=== PATIENT | male | born 1985 | race Caucasian/White ===

== ENCOUNTER → 2019-02-16 11:08 | Outpatient (CLI) | payer MEDICAID, SELFPAY ==
--- NOTE | 2019-02-16 11:17 | EKG12_ITS ---
Test Reason : HALFWAY MED Blood Pressure : / mmHG Vent. Rate : 058 BPM Atrial Rate : 058 BPM P-R Int : 144 ms QRS Dur : 092 ms QT Int : 406 ms P-R-T Axes : 057 047 050 degrees QTc Int : 398 ms Sinus bradycardia Otherwise normal ECG Confirmed by KEN SUAREZ, AVI ([id number]), school photograph editor VINITA AREVALO ([id number]) on 02/17/2019 1:16:05 PM Referred By: MATTIE FLAHERTY Confirmed By:STANFORD ROGERS MD
== END ==
PROVIDERS: Family Provider Family Medicine; PCP Family Medicine
DX: Z79.899 Other long term (current) drug therapy (principal)
CPT/HCPCS: 93005

== ENCOUNTER 2019-03-22 14:02 | Emergency (ER) | payer MEDICAID, SELFPAY ==
[2019-03-22 14:05] VITALS: BP 146/93; PULSE 94; RESP 17; TEMP 36.5; O2SAT 100; BMI 25.8
--- NOTE | 2019-03-22 14:29 | EKG12_ITS ---
Test Reason : SUB Blood Pressure : / mmHG Vent. Rate : 073 BPM Atrial Rate : 073 BPM P-R Int : 146 ms QRS Dur : 088 ms QT Int : 386 ms P-R-T Axes : 043 039 038 degrees QTc Int : 425 ms Normal sinus rhythm Normal ECG Confirmed by JAMES FLOWERS ([id number]), slot editor VINITA AREVALO ([id number]) on 03/24/2019 1:11:54 PM Referred By: CHACORTA Confirmed By:JAMES FLOWERS
[2019-03-22] MEDS: Ondansetron 4 MG/2 ML Vial IV (14:46)
[2019-03-22] MEDS: 0.9% Normal Saline 1,000 ML 1000 ML IV (14:46)
[2019-03-22] MEDS: Mag Hydrox/Al Hydrox/Simeth 30 ML UDC PO (14:46)
[2019-03-22 14:47] LABS: Absolute Lymphocyte Count 1.42 X10^3/uL (0.83-4.51); Absolute Neutrophil Count 5.8 X10^3/uL (2.0-7.7); Basophil# 0.04 X10^3/uL; Basophil% 0.5 % (0-1); Eosinophil# 0.02 X10^3/uL; Eosinophils% 0.2 % (0-5); Hematocrit 47.8 % (40-54); Lymphocyte # 1.42 X10^3/ul (4.0); Lymphocyte % 17.3 % (19-41); Mean Corp Hgb Conc 33.5 g/dL (32-36); Mean Corpuscular Hgb 28.9 pg (27.0-32.0); Mean Corpuscular Volume 86.3 fL (80-94); Mean Platelet Vol. 9.4 fl (6.2-12.0); Monocyte# 0.94 X10^3/uL; Monocyte% 11.4 % (0-10); NRBC Flagged by Analyzer 0 % (0-5); Neutrophil # 5.77 X10^3/uL (2.7-7.7); Neutrophil % 70.2 % (47-70); Platelet Count 341 K/mm3 (150-450); RBC Distribution Width CV 12.2 % (11.6-14.6); RBC Distribution Width SD 38.2 fl (35.1-43.9); Red Blood Count 5.54 M/mm3 (4.6-6.2); White Blood Count 8.2 K/mm3 (4.4-11.0)
[2019-03-22 15:10] LABS: ALB/GLOB Ratio 1.1 RATIO (0.9-2.4); AST(SGOT) 30 U/L (15-37); Alanine Aminotransfer ALT/SGPT 52 U/L (16-61); Albumin, Serum 4.3 g/dL (3.2-5.0); Alkaline Phosphatase 82 U/L (45-117); Anion Gap 8 (5-15); BUN 10 mg/dL (7-18); Calcium,Total 9.9 mg/dL (8.5-10.1); Chloride 104 mmol/L (98-107); Creatinine, Serum 1.25 mg/dL (0.70-1.30); EST Glomerular Filtration Rate 70 mL/min (>60); Est Glom Filt Rate - Afr Amer 85 mL/min (>60); Estimated Creatinine Clearance 86.79 ml/min; Glucose 107 mg/dL (74-106); Lipase 83 U/L (73-393); Potassium 3.7 mmol/L (3.5-5.1); Protein, Total 8.3 g/dL (6.4-8.2); Sodium Level 141 mmol/L (136-145)
--- NOTE | 2019-03-22 15:34 | ED.DCSUM_ITS ---
- ER Visit Summary Date of Service: 03/22/19 Chief Complaint: Shaky and hiccups History of Present Illness: The patient is a 33 M who is a patient of Dr. Mclean. He reports that he is seeing a counselor for alcohol abuse. States that he had not had a drink for a week. However, he drank the past 4 days and drinks 12 pack each time. He reports that typically he drinks 1-3 times a week. Patient reports that after not drinking yesterday he noticed that he was shaky and has the hiccups. He is lightheaded and this increases when he stands. He has not passed out. Reports that he has a chest pain is 5-10 in severity. Is increased with drinking or nicotine. Nothing makes this better. He has been nauseated and vomited 8 times. No blood in his emesis. No diarrhea. No melena hematochezia. Physical Examination: Vitals: Stable. Afebrile. General: Well-nourished and well-developed. Head: Normocephalic atraumatic. Neck: Supple, no lymphadenopathy. No JVD. Nontender. Cardiovascular: Regular rate and rhythm. No murmurs. Respiratory: No respiratory distress. Clear to auscultation bilaterally. Abdominal: Soft, mild epigastric tenderness to palpation, nondistended, normal bowel sounds. No guarding, rebound, or peritoneal signs. Back: Nontender. Extremities: Nontender, no edema. Skin: Normal color, no rash. Neurologic: Alert and oriented ?3. Cranial nerves II through XII are intact. Normal strength and sensation. Psych: Normal affect. Test Results: EKG is sinus at [address] changes. Is unchanged from prior. CBC shows lymphocytes 17 and monocytes of 11. Chem-7 shows a glucose 107. LFTs are normal. Lipase is normal. Emergency Department Course and Treatment: Patient had an IV placed. He was given liter of normal saline. He was given Zofran IV and a GI cocktail p.o. He does report some relief from this. However, he still has the hiccups. We talked about the possibility of Thorazine. He does not have a ride home and does not want this. Treatment Plan: I suspect patient has gastritis from his alcohol abuse. He will be discharged with [facility] and instructed to abstain from alcohol use. Instructed to follow-up with his primary care physician in 1 week if not improving. Return to the emergency department for any worsening symptoms. Disposition: To home in improved and stable condition. Impression: 1. Alcohol abuse. 2. Gastritis. 3. Alcohol abuse. This note was generated with [employer] [place] software. It may contain incorrect words, spelling, and punctuation that were not noted in review of the chart prior to signing ED Disposition - Plan for ED Patient: Instructions: GASTRITIS (Adult), Alcohol Abuse Prescriptions: Omeprazole [Prilosec] 20 mg PO DAILY #30 cap Transmission Status: Received by [facility] Ondansetron [Zofran Odt] 4 mg PO Q8H PRN PRN #10 tab PRN Reason: Nausea Transmission Status: Received by [facility] Referrals: José Miguel Mclean DO [Primary Care Provider] - 1 Week if not improving
[2019-03-22 16:00] VITALS: BP 129/88; PULSE 90; RESP 16; O2SAT 98
== END 2019-03-22 16:05 | disposition home or self-care (01) ==
LOC: ED 14:42
PROVIDERS: Emergency Provider Emergency Medicine; PCP Family Medicine
DX: F10.10 Alcohol abuse, uncomplicated (principal); Y90.9 Presence of alcohol in blood, level not specified; K29.70 Gastritis, unspecified, without bleeding; R06.6 Hiccough; Z72.0 Tobacco use
CPT/HCPCS: 80053; 83690; 85025; 93005; 96361; 96374; 99284; J7030; A4216; J2405

== ENCOUNTER 2019-08-08 22:46 | Emergency (ER) | payer MEDICAID, SELFPAY ==
[2019-08-08 22:47] VITALS: BP 163/101; PULSE 110; RESP 20; TEMP 36.3; O2SAT 100; BMI 24.9
--- NOTE | 2019-08-08 23:25 | RAD_ITS ---
HISTORY: Chest pain, shortness of breath, palpitations. EXAM: XR Chest 1 View: COMPARISON: None FINDINGS: # of images incl. paperwork: 1 Lungs are clear. Heart is not enlarged. No acute osseous pathology perceived. Pulmonary vascularity is distinct. No effusions. RAD/Chest 1 View (Portable) IMPRESSION: Normal. at 0029 Reported and signed by: Joao Santos MD Electronically Signed: Joao Santos MD at 0:28 EDT Tel , Service support ,
--- NOTE | 2019-08-08 23:27 | ED.DCSUM_ITS ---
History of Present Illness Chief Complaint: Substance Abuse Informant: Patient Onset: Today Context: Gradual Onset Timing: Continuous Narrative: Patient is a 34-year-old male with history of anxiety presenting with chest pain and feeling like he is going to . Patient states he had been on a franco with alcohol for the past 12 days. He states he kept drinking every day because he did want to deal with having a hangover. Patient states he is been drinking beer only. He stopped drinking around noon today. Since then he has been having worsening headaches, anxiety and feeling like he is going to . He states he associated chest pain. It is diffuse throughout his entire chest. Does not radiate. He is denies any difficulty breathing with states he feels short of breath. Patient states he has had similar episodes in the past but never been this severe. He denies any swelling of his legs or history of DVT or PE. He denies any illicit drug use. He states he did use CBD oil couple days ago but does not think this is related. He states he was on anxiety medicine but is been off of it for the past month. He states he otherwise feels safe at home. Patient also states he is getting pain shooting up his neck and into his face. They cause him to feel dizzy. He states he has had these with anxiety attacks before but they have never been this severe. Patient has any other complaints at this time. Past Medical History - Allergies and Home Meds Allergies/Adverse Reactions: Allergies No Known Allergies Allergy (Verified 03/22/19 14:03) Primary Care Physician: José Miguel Mclean DO [Primary Care Provider] - Past Medical History: - - Anxiety Surgical History: noncontributory Lives: Alone Smoking Status: Current some day smoker Alcohol: Heavy Drugs: None Review of Systems General: Denies: Chills, Fever, Sweats Eyes: Denies: Visual changes - bilaterally, Diplopia ENT: Denies: Rhinorrhea, Sore throat Cardiovascular: Reports: Chest pain. Denies: Palpitations Respiratory: Denies: Dyspnea, Cough, Dyspnea on exertion Gastrointestinal: Denies: Abdominal pain, Nausea, Vomiting, Diarrhea, Melena, Hematochezia Genitourinary: Denies: Dysuria, Hematuria, Frequency Musculoskeletal: Denies: Back pain, Extremity Pain Skin: Denies: Rash, Wounds Neurological: Reports: Headache. Denies: Weakness, Numbness Psych: Reports: Anxiety. Denies: Depression, Suicidal thoughts, Suicidal ideations Physical Exam Vital Signs/Narrative: Vital Signs Temp Pulse Resp BP Pulse Ox 08/08/19 22:47 97.3 F L 110 H 20 H 163/101 H 100 Inital Vital Signs reviewed: Yes General: Well nourished, Well developed, No Acute Distress Head: Normocephalic, Atraumatic Eyes: Perrl, EOMI ENT: Moist mucous membranes, No rhinorrhea, TM's clear Neck: Supple, Nontender, No JVD Cardiovascular: Regular rhythm, No murmurs, Tachycardia Respiratory: No distress, CTA bilaterally, Chest nontender Abdomen: Soft, Nontender, Nondistended, Normal bowel sounds. Negative for: Guarding, Rebound tenderness Back: Nontender, Normal Inspection Extremities: Nontender, No edema Skin: Normal color, No rash Neurological: Alert, Oriented x3, Cranial nerves II-XII grossly intact, Normal Strength, Normal Sensation Psychological: Normal affect, - - Very anxious and jittery in the room, displays good insight and answers questions appropriately. Does not appear clinically intoxicated. Diagnostic/Tx/Re-eval Chest X-Ray - ED: 1 View, Read by ED Physician, Read by Radiologist, No Acute Disease Clinical Impression(s) from Imaging Studies Chest X-Ray 08/08/19 23:25 IMPRESSION: Normal. at 0029 Reported and signed by: Joao Santos MD Electronically Signed: Joao Santos MD at 0:28 EDT Tel , Service support , Laboratory Data 08/08/19 08/08/19 08/08/19 22:58 22:58 22:58 WBC 9.9 RBC 5.38 Hgb 15.5 Hct 46.7 MCV 86.8 MCH 28.8 MCHC 33.2 RDW Std Deviation 39.1 RDW Coeff of Ruperto 12.4 Plt Count 364 MPV 9.9 Sodium 134 L Potassium 3.6 Chloride 99 Carbon Dioxide 26.0 Anion Gap 9 BUN 10 Creatinine 1.16 Estim Creat Clear Calc 92.65 Est GFR (MDRD) Af Amer 93 Est GFR (MDRD) Non-Af 77 BUN/Creatinine Ratio 8.6 L Glucose 179 H Calcium 8.8 Troponin I < 0.015 Urine Color Urine Clarity Urine pH Ur Specific [place] Urine Protein Urine Glucose (UA) Urine Ketones Urine Occult Blood Urine Nitrite Urine Bilirubin Urine Urobilinogen Ur Leukocyte Esterase Urine RBC Urine WBC Ur Squamous Epith Cells Urine Bacteria Urine Mucus Urine Opiates Screen Urine Methadone Screen Ur Barbiturates Screen Ur Phencyclidine Scrn Ur Amphetamines Screen U Methamphetamin-MDMA U Benzodiazepines Scrn Urine Cocaine Screen U Cannabinoids Screen Ur Drug Screen Comment Ethyl Alcohol < 3.0 08/09/19 08/09/19 08/09/19 00:04 00:04 02:20 WBC RBC Hgb Hct MCV MCH MCHC RDW Std Deviation RDW Coeff of Ruperto Plt Count MPV Sodium Potassium Chloride Carbon Dioxide Anion Gap BUN Creatinine Estim Creat Clear Calc Est GFR (MDRD) Af Amer Est GFR (MDRD) Non-Af BUN/Creatinine Ratio Glucose Calcium Troponin I < 0.015 Urine Color Yellow Urine Clarity Clear Urine pH 7.0 Ur Specific [place] 1.005 Urine Protein Negative Urine Glucose (UA) Normal Urine Ketones 5 H Urine Occult Blood Negative Urine Nitrite Negative Urine Bilirubin Negative Urine Urobilinogen Normal Ur Leukocyte Esterase Negative Urine RBC 0 SEEN Urine WBC 0 SEEN Ur Squamous Epith Cells 0 SEEN Urine Bacteria 0 SEEN Urine Mucus 0 SEEN Urine Opiates Screen NEGATIVE Urine Methadone Screen NEGATIVE Ur Barbiturates Screen NEGATIVE Ur Phencyclidine Scrn NEGATIVE Ur Amphetamines Screen NEGATIVE U Methamphetamin-MDMA NEGATIVE U Benzodiazepines Scrn NEGATIVE Urine Cocaine Screen NEGATIVE U Cannabinoids Screen NEGATIVE Ur Drug Screen Comment Ethyl Alcohol - Rhythm Strip Rhythm Strip: Sinus Rhythm Rate: 90 Ectopy: None - EKG Initial EKG Interpretation: Sinus Rhythm, - - Normal sinus rhythm at a rate of 90 Normal axis Normal intervals Normal ST segments - Medical Decision Making Patient is a 34-year-old male with history of anxiety presenting with anxiety associated with drinking alcohol. Patient has been drinking heavily for the past 12 days is now stopped drinking. He states he feels very anxious and that he might . He has associated chest pain and shortness of breath. On arrival patient is tachycardic and very anxious on exam. He is otherwise well- appearing. He is not in any extremities. Patient is given IV fluids and Ativan. While patient stopped drinking today I do not think his symptoms are from alcohol withdrawal/delirium tremens, I think this is a separate anxiety process. Cardiac work-up including EKG, chest x-ray and delta troponin is negative. Patient has no source of infection. No signs of pneumonia or pneumothorax. CBC and BMP are also largely unremarkable. On reevaluation patient is significantly improved. He is given a second liter fluid however. He will be discharged home with Zofran. Patient is requesting some type of sedating medication to help him sleep and calm down however I counseled him that I do not feel comfortable prescribing him this. He has hydroxyzine at home which she can take. He is given a dose prior to discharge. Patient states he is interested in alcohol detox/alcohol abuse help but does not want any inpatient care right now. As patient is not actively having signs of withdrawal, I am comfortable letting him go home. Patient is counseled on signs and symptoms requiring return to the emergency room. Patient verbalizes agreement and understand this plan. Patient discharged home in stable and improved condition. ED Disposition - Plan for ED Patient: Disposition: Home or Assisted Living Diagnosis: Anxiety Instructions: ED Alcohol Abuse Prescriptions: Ondansetron [Zofran Odt] 4 mg PO Q8H PRN PRN #10 tab PRN Reason: Nausea Prescription Printed Referrals: José Miguel Mclean DO [Primary Care Provider] - Additional Instructions: Please return the emergency room with any worsening symptoms. He may turn to the emergency room at any time if you like to be admitted for alcohol detox.
[2019-08-08 23:38] LABS: Hematocrit 46.7 % (40-54); Hemoglobin 15.5 g/dL (13.0-16.5); Mean Corp Hgb Conc 33.2 g/dL (32-36); Mean Corpuscular Hgb 28.8 pg (27.0-32.0); Mean Corpuscular Volume 86.8 fL (80-94); Mean Platelet Vol. 9.9 fl (6.2-12.0); Platelet Count 364 K/mm3 (150-450); RBC Distribution Width CV 12.4 % (11.6-14.6); RBC Distribution Width SD 39.1 fl (35.1-43.9); Red Blood Count 5.38 M/mm3 (4.6-6.2); White Blood Count 9.9 K/mm3 (4.4-11.0)
[2019-08-08] MEDS: LORazepam 2 MG/ML Syringe 1 MG IV (23:39)
[2019-08-08] MEDS: 0.9% Normal Saline 1,000 ML 1000 ML IV (23:39)
--- NOTE | 2019-08-08 23:39 | EKG12_ITS ---
Test Reason : SUBSTANCE ABUSE Blood Pressure : / mmHG Vent. Rate : 090 BPM Atrial Rate : 090 BPM P-R Int : 146 ms QRS Dur : 088 ms QT Int : 346 ms P-R-T Axes : 062 061 042 degrees QTc Int : 423 ms Normal sinus rhythm Normal ECG Confirmed by JAMES FLOWERS ([id number]), food expeditor NERI CASTILLO ([id number]) on 08/10/2019 11:45:05 AM Referred By: DIONTE Confirmed By:JAMES FLOWERS
[2019-08-08 23:49] VITALS: BP 141/95; PULSE 75; RESP 18; O2SAT 99
[2019-08-08 23:55] LABS: Anion Gap 9 (5-15); BUN 10 mg/dL (7-18); BUN/Creat Ratio 8.6 RATIO (10-20); Calcium,Total 8.8 mg/dL (8.5-10.1); Chloride 99 mmol/L (98-107); Creatinine, Serum 1.16 mg/dL (0.70-1.30); EST Glomerular Filtration Rate 77 mL/min (>60); Est Glom Filt Rate - Afr Amer 93 mL/min (>60); Estimated Creatinine Clearance 92.65 ml/min; Glucose 179 mg/dL (74-106); Potassium 3.6 mmol/L (3.5-5.1); Sodium Level 134 mmol/L (136-145)
[2019-08-09] LABS: Alcohol, Blood (Medical)-Serum < 3.0 mg/dL
[2019-08-09 00:25] LABS: Bacteria 0 SEEN /hpf (None Seen); Mucous, Urine 0 SEEN /hpf (<or=2+); Red Blood Cells-Urine 0 SEEN /hpf (0-5); Squamous Epithelial Cells - UA 0 SEEN /hpf (0-5); White Blood Cells 0 SEEN /hpf (0-5)
[2019-08-09 00:27] LABS: Color, Urine Yellow (Yellow); Glucose, Dipstick Normal (Normal); Ketone-Dipstick 5 mg/dl (Negative); Leukocyte Esterase-Dipstick Negative /ul (Negative); Nitrite-Dipstick Negative (Negative); Occult Blood-Urine Negative /ul (Negative); Protein-Dipstick Negative (Negative); Specific Gravity, Urine 1.005 (1.002-1.030); Urine Bilirubin Dipstick Negative (Negative); Urine Clarity Clear (Clear); Urine Urobilinogen Normal (Normal)
[2019-08-09 00:44] LABS: Amphetamine Urine VISTA NEGATIVE (<1000 ng/mL); Barbiturate Urine VISTA NEGATIVE (< 200 ng/mL); Benzodiazepine Urine VISTA NEGATIVE (< 200 ng/mL); Cocaine Urine VISTA NEGATIVE (< 300 ng/mL); Ecstacy Urine VISTA NEGATIVE (< 500 ng/mL); Methadone Urine VISTA NEGATIVE (< 300 ng/mL); PCP Urine VISTA NEGATIVE (< 25 ng/mL); THC Urine VISTA NEGATIVE (< 50 ng/mL); Vista UDS pH Range 6
[2019-08-09 01:20] VITALS: BP 132/98; PULSE 69; RESP 16; O2SAT 98
[2019-08-09 02:02] VITALS: BP 136/79; PULSE 70; RESP 20; O2SAT 99
[2019-08-09] MEDS: hydrOXYzine 10 MG Tablet PO (02:41)
[2019-08-09] MEDS: 0.9% Normal Saline 1,000 ML 999 ML IV (04:01)
[2019-08-09 04:02] VITALS: BP 132/80; PULSE 66; RESP 18; O2SAT 98
== END 2019-08-09 04:27 | disposition home or self-care (01) ==
PROVIDERS: Emergency Provider Emergency Medicine; PCP Family Medicine
DX: F41.9 Anxiety disorder, unspecified (principal); F10.10 Alcohol abuse, uncomplicated; Y90.9 Presence of alcohol in blood, level not specified; F17.200 Nicotine dependence, unspecified, uncomplicated
CPT/HCPCS: 71045; 80048; 80307; 80320; 81001; 84484; 85027; 93005; 96361; 96374; 99285; J7030; A4216; G0480